=== PATIENT | male | born 1985 | race African-American/Black ===

== ENCOUNTER 2019-04-21 18:08 | Emergency (ER) | payer BC, OTHER ==
[2019-04-21 18:14] VITALS: BP 147/85
--- NOTE | 2019-04-21 18:26 | ER Document Report ---
HPI - HPI Time Seen by Provider: 04/21/19 18:21 Pain Level: 3 Notes: Patient is a 33-year-old male with no significant past medical history who presents complaining of right knee pain status post injury while playing basketball yesterday. Patient states that he came down on it wrong. Patient has had pain to the medial knee primarily since then. Pain does not radiate. He has not noticed any obvious swelling or bruising. Denies drug allergies. Denies any headache, fever, URI, sore throat, chest pain, palpitations, syncope, cough, shortness of breath, wheeze, dyspnea, abdominal pain, nausea/vomiting/diarrhea, urinary retention, dysuria, hematuria, back pain, loss of control of bowel or bladder, numbness/tingling, saddle anesthesia, muscle paralysis/weakness, or rash. - ROS Systems Reviewed and Negative: Yes All other systems reviewed and negative Past Medical History - Social History Smoking Status: Never Smoker Family History: Reviewed & Not Pertinent - Immunizations Hx Diphtheria, Pertussis, Tetanus Vaccination: No Vertical Provider Document - CONSTITUTIONAL Agree With Documented VS: Yes Notes: PHYSICAL EXAMINATION: GENERAL: Well-appearing, well-nourished and in no acute distress. LUNGS: Breath sounds clear to auscultation bilaterally and equal. No wheezes rales or rhonchi. HEART: Regular rate and rhythm without murmurs, rubs, gallops. Musculoskeletal: Rt knee: No obvious swelling, ecchymosis, effusion, or deformity. FROM to passive/active and flexion >90 w/o difficulty. Strength 5+/5. N/V intact distal. + tenderness to medial knee. Ligamentous grossly stable, limited exam with pt resistance. Obie grossly negative. Patellar grind negative. No calf tenderness. Extremities: No cyanosis, clubbing, or edema b/l. Peripheral pulses 2+. Capillary refill less than 3 seconds. Gelacio neg b/l. NEUROLOGICAL: Normal speech, normal gait. Normal sensory, motor exams PSYCH: Normal mood, normal affect. SKIN: Warm, Dry, normal turgor, no rashes or lesions noted. - INFECTION CONTROL TRAVEL OUTSIDE OF THE [place] IN LAST 30 DAYS: No Course - Re-evaluation Re-evalutation: 04/21/19 Patient is an afebrile, well-hydrated, 33-year-old male who presents to the ED with Rt knee pain which I suspect to be a sprain versus strain, ?internal involvement. Vitals are acceptable without any significant tachycardia, tachypnea, or hypoxia. PE is otherwise unremarkable for any neurovascular compromise, obvious tendon/ligament rupture, obvious fracture/dislocation, septic joint. X-ray was unremarkable for any acute pathology. Knee immobilizer and crutches were provided today. Patient declined any Tylenol or ice. Patient is nontoxic-appearing. Patient is able to ambulate and weight-bear. No other labs or imaging warranted at this time based on H&P. Conservative measures otherwise for symptoms. Recheck with your PCM in 3-5 days. Schedule consult with orthopedics. Return to the ED with any worsening/concerning symptoms otherwise as reviewed in discharge. Patient is in agreement. - Vital Signs Vital signs: Temp Pulse Resp BP Pulse Ox 98.4 F 96 15 147/85 H 95 04/21/19 18:13 04/21/19 18:13 04/21/19 18:13 04/21/19 18:13 04/21/19 18:13 Discharge - Discharge Clinical Impression: Right knee pain Qualifiers: Chronicity: acute Qualified Code(s): M25.561 - Pain in right knee Condition: Stable Disposition: HOME, SELF-CARE Additional Instructions: Rest, Ice, Compression, Elevation Tylenol/ibuprofen as needed Light stretches daily Strength exercises as able Moist heat and massage may help F/u with your PCP in 3-5 days for a recheck Consider consult with physical therapy Schedule appointment with orthopedics for further evaluation and management Return to the ED with any worsening symptoms and/or development of fever, headache, chest pain, palpitations, syncope, shortness of breath, trouble breathing, abdominal pain, n/v/d, muscle weakness/paralysis, numbness/tingling, swelling, redness, or other worsening symptoms that are concerning to you. Prescriptions: Naproxen 500 mg PO BID #20 tablet Forms: Elevated Blood Pressure Referrals: [facility] ([email or web address] [Provider Group] - Follow up in 3-5 days
--- NOTE | 2019-04-21 19:05 | RADIOLOGY REPORT (SQ) ---
EXAM DESCRIPTION: KNEE RIGHT 4 VIEWS COMPLETED DATE/TIME: 04/21/2019 6:46 pm REASON FOR STUDY: rt knee pain s/p injury COMPARISON: None. EXAM PARAMETERS: NUMBER OF VIEWS: Three views. TECHNIQUE: AP, lateral and oblique radiographic images acquired of the right knee. LIMITATIONS: None. FINDINGS: MINERALIZATION: Normal. BONES: No acute fracture or dislocation. No worrisome bone lesions. JOINTS: No effusion. SOFT TISSUES: No significant soft tissue swelling. No radiopaque foreign body. OTHER: No other significant finding. IMPRESSION: NO FRACTURE. TECHNICAL DOCUMENTATION: JOB ID: [id number] [id number] 2010 [employer]- All Rights Reserved Reading location - IP/workstation name: [email or web address]
== END 2019-04-21 19:17 | disposition home or self-care (01) ==
LOC: ER 18:08
DX: M25.561 Pain in right knee (principal)
CPT/HCPCS: 99283; 73564; L1830

== ENCOUNTER 2020-10-07 21:08 | Emergency (ER) | payer BC, MEDICAID ==
[2020-10-07] MEDS ORDERED: LIDOCAINE 1%/EPINEPHRINE INJ 20 ML VIAL INJ ONE (22:56)
--- NOTE | 2020-10-07 22:58 | ER Document Report ---
ED Medical Screen (RME) - General Chief Complaint: Abscess Stated Complaint: POSSIBLE BOIL RIGHT SIDE OF FACE Time Seen by Provider: 10/07/20 22:53 Mode of Arrival: Ambulatory Information source: Patient TRAVEL OUTSIDE OF THE [place] IN LAST 30 DAYS: No - HPI Patient complains to provider of: Abscess Notes: 10/07/20 22:56 Patient with complaints of abscess to the right jawline. The patient states that he thinks he may have had an ingrown hair to this area. Over the last few weeks. Over the last few days has gotten more swollen and more painful. No fever. No difficulty breathing or swallowing. No history of diabetes. No chest pain or shortness of breath. No nausea, vomiting, diarrhea. Exam: Nontoxic, no distress. Lungs clear to go throughout. Heart sounds normal. Fluctuant abscess to the right jawline with a small pustule. Tenderness to palpation. No submental swelling or induration. No sublingual swelling or induration. Voice is normal. An initial examination was made on the patient as part of the triage process, and it was determined a more comprehensive evaluation was necessary. Initial orders were placed and patient was transferred to another provider in the ED who assumed care and finished evaluation and plan. - Related Data Allergies/Adverse Reactions: No Known Allergies Allergy (Verified 04/21/19 18:10) Past Medical History Renal/ Medical History: Denies: Hx Peritoneal Dialysis - Immunizations Hx Diphtheria, Pertussis, Tetanus Vaccination: No Physical Exam - Vital signs Vitals: Temp Pulse Resp BP Pulse Ox 98.4 F 100 18 146/74 H 97 10/07/20 21:42 10/07/20 21:42 10/07/20 21:42 10/07/20 21:42 10/07/20 21:42 Course - Vital Signs Vital signs: Temp Pulse Resp BP Pulse Ox 98.4 F 100 18 146/74 H 97 10/07/20 21:42 10/07/20 21:42 10/07/20 21:42 10/07/20 21:42 10/07/20 21:42
[2020-10-08 04:31] VITALS: BP 116/72
== END 2020-10-08 06:35 | disposition left against medical advice (07) ==
LOC: ER 21:08
DX: L02.01 Cutaneous abscess of face (principal); Z53.20 Procedure and treatment not carried out because of patient's decision for unspecified reasons
CPT/HCPCS: 99281